=== PATIENT | female | born 1970 | race American Indian/Alaskan Native ===

== ENCOUNTER 2019-01-30 14:18 | Outpatient (CLI) | payer BC | END 2019-01-30 14:19 | disposition home or self-care (01) | LOC: RAD 14:18 ==

== ENCOUNTER 2019-02-03 10:46 | Day surgery (SDC) | payer BC ==
[2019-02-03 11:17] VITALS: BMI 36.1
[2019-02-03] MEDS ORDERED: Propofol 10 mg/ml Inj (20 ML) ONE ×3 (13:26→14:00)
[2019-02-03] MEDS ORDERED: Midazolam 2 MG/2 ML VIAL ONE (13:35)
[2019-02-03] MEDS ORDERED: Sodium Chloride 0.9% 1,000 ML IV SCH (14:30)
[2019-02-03 14:31] VITALS: RESP 18
[2019-02-03 15:06] VITALS: BP 124/76; PULSE 59; TEMP 97.9; O2SAT 100
--- NOTE | 2019-02-05 07:53 | CP.PCM.PCO ---
Physician Communication Note - Physician Communication Note Physician Communication Note: Addendum to anesthesia record: only one Versed given
== END 2019-02-03 15:39 | disposition home or self-care (01) ==
LOC: ENDO 10:46
PROVIDERS: ATTEND Internal Medicine Gastroenterology
DX: K31.7 Polyp of stomach and duodenum (principal); K29.50 Unspecified chronic gastritis without bleeding; B96.81 Helicobacter pylori [H. pylori] as the cause of diseases classified elsewhere; R19.7 Diarrhea, unspecified; E75.5 Other lipid storage disorders; Z98.0 Intestinal bypass and anastomosis status
CPT/HCPCS: 43239; 43251; 45380; 84703; 88305; 88342; J2001; J2250; J2704; J3010; J7030; J7040